=== PATIENT | male | born 1970 | race Caucasian/White ===

== ENCOUNTER 2020-08-19 10:55 | Inpatient (IN) ==
[2020-08-19] MEDS ORDERED: 0.9 % Sodium Chloride 1,000 ML IVC ONE (11:18)
[2020-08-19] MEDS ORDERED: Isovue-370 500 ML BOTTLE IVP ONE (11:18)
[2020-08-19 11:32] LABS: Basophils # 0.1 K/mcL (0.0-0.2); Basophils % 0.7 %; Eosinophils # 0.1 K/mcL (0.0-0.6); Hematocrit 46.6 % (37.5-50.1); Hemoglobin 16.7 g/dL (12.9-16.9); Immature Granulocytes % 0.3 % (0-4); Lymphocytes # 1.4 K/mcL (0.6-4.6); Lymphocytes % 21.1 %; Mean Corpuscular HGB Conc 35.8 g/dL (31.6-35.5); Mean Corpuscular Hemoglobin 33.2 pg (28.0-33.3); Mean Corpuscular Volume 92.6 fL (83.0-100.0); Mean Platelet Volume 9.7 fL (9.4-12.4); Monocytes # 0.6 K/mcL (0.0-1.3); Monocytes % 8.2 %; Neutrophils # 4.6 K/mcL (1.6-8.9); Platelet Count 201 K/mcL (140-400); Red Blood Count 5.03 M/mcL (4.19-5.50); Red Cell Distribution Width 12.1 % (11.5-14.5); Segmented Neutrophils % 68.7 %; White Blood Count 6.7 K/mcL (4.3-11.1)
[2020-08-19 11:59] LABS: Alanine Aminotransferase 26 Units/L (7-52); Albumin/Globulin Ratio 1.3 (1.1-2.2); Alkaline Phosphatase 93 Units/L (34-104); Aspartate Amino Transferase 21 Units/L (13-39); BUN/Creatinine Ratio 17 (6-26); Bilirubin,Direct 0.3 mg/dL (0.0-0.2); Bilirubin,Total 1.3 mg/dL (0.3-1.0); Blood Urea Nitrogen 11 mg/dL (6-20); Calcium 9.6 mg/dL (8.6-10.3); Carbon Dioxide 25 mEq/L (23-29); Chloride 98 mEq/L (98-107); Globulin 3.1 g/dL (2.4-3.5); Glucose 260 mg/dL (70-105); Lipase 12 Units/L (11-82); Osmolality,Calculated 280 (280-300); Sodium 131 mEq/L (136-145); Total Protein 7.1 g/dL (6.4-8.9); Troponin I 0.03 ng/mL (< 0.04); eGFR For African Americans > 60 (> 60); eGFR For Non-African Americans > 60 (> 60)
[2020-08-19] MEDS ORDERED: Furosemide 40 MG/4 ML VIAL IVP ONE (13:46)
[2020-08-19 14:02] LABS: Bilirubin,Urine Negative (Negative); Blood,Urine Negative (Negative); Clarity,Urine Clear (Clear); Color,Urine Colorless (Yellow); Glucose,Urine (UA) >=1000 mg/dL (Normal); Ketones,Urine Negative (Negative); Leukocyte Esterase,Urine Negative (Negative); Mucus,Urine Few per lpf (None-Few); Nitrite,Urine Negative (Negative); Protein,Urine Trace mg/dL (Neg-Trace); RBC,Urine 0-3 per hpf (0-3); Specific Gravity,Urine > 1.030 (1.010-1.025); Squamous Epithelial Cell,Urine Few per hpf (None-Few); Urobilinogen,Urine Normal (Normal); WBC,Urine 0-3 per hpf (0-3)
[2020-08-19] MEDS ORDERED: Naloxone 0.4 MG/ML INJ IVP PRN (15:11)
[2020-08-19] MEDS ORDERED: Acetaminophen 325 MG TABLET PO PRN (15:11)
[2020-08-19] MEDS ORDERED: Ondansetron 4 MG/2 ML VIAL IVP PRN (15:11)
[2020-08-19] MEDS ORDERED: Perflutren Lipid Microsphere 1.3 ML in 0.9 % Sodium Chloride 8.7 ML IVP PRN (15:23)
[2020-08-19 15:40] LABS: Adenovirus Not Detected (Not Detect); Bordetella Pertussis Not Detected (Not Detect); Chlamydophila pneumoniae Not Detected (Not Detect); Coronavirus 229E Not Detected (Not Detect); Coronavirus HKU1 Not Detected (Not Detect); Coronavirus NL63 Not Detected (Not Detect); Coronavirus OC43 Not Detected (Not Detect); Human Metapneumovirus Not Detected (Not Detect); Human Rhinovirus/Enterovirus Not Detected (Not Detect); Influenza A Subtype 2009 H1 Not Detected (Not Detect); Influenza B Not Detected (Not Detect); Mycoplasma pneumoniae Not Detected (Not Detect); Parainfluenza Virus 1 Not Detected (Not Detect); Parainfluenza Virus 2 Not Detected (Not Detect); Parainfluenza Virus 3 Not Detected (Not Detect); Parainfluenza Virus 4 Not Detected (Not Detect); Respiratory Syncytial Virus Not Detected (Not Detect); SARS-CoV-2 Not Detected (Not Detect)
[2020-08-19] MEDS ORDERED: Aspirin 325 MG TABLET PO ONE (15:46)
[2020-08-19] MEDS: Ipratropium/Albuterol Neb 3 ML IH SCH ×2 (16:00→21:58)
[2020-08-19] MEDS: Azithromycin 500 MG in 0.9 % Sodium Chloride 250 ML IVPB SCH (17:14)
[2020-08-19] MEDS: cefTRIAXone 1,000 MG in 0.9 % Sodium Chloride Mini Bag 100 ML IVPB SCH (17:14)
[2020-08-19] MEDS ORDERED: *HR* Dextrose 50 % in Water (Vial) 50 ML VIAL IVP PRN (17:27)
[2020-08-19] MEDS ORDERED: Dextrose Gel 15 GM/37.5 ML TUBE PO PRN ×2 (17:27)
[2020-08-19] MEDS ORDERED: D5% in Water 1,000 ML IVC PRN (17:27)
[2020-08-19 17:35] LABS: RBC,Pleural Fluid 15000 RBC/mcL
[2020-08-19 17:57] LABS: LDH,Pleural Fluid 58 Units/L (No Ref Range); Total Protein,Pleural Fluid < 2.0 g/dL
[2020-08-19 18:20] LABS: Estimated Average Glucose 229 mg/dl; Hemoglobin A1C 9.6 %
[2020-08-19 18:26] LABS: Basophils,Pleural Fluid 0 %
[2020-08-19 18:28] LABS: Appearance of Pleural Fl Bloody (Clear)
[2020-08-19] MEDS: *HR* Heparin 5,000 UNIT/ML VIAL SQ SCH (20:46)
[2020-08-19] MEDS ORDERED: Insulin DETEMIR 100 UNIT/ML X5UNITS SUBQ SCH (21:00)
[2020-08-20] MEDS: Ipratropium/Albuterol Neb 3 ML IH SCH ×4 (03:53→21:49)
[2020-08-20 05:48] LABS: Basophils % 0.8 %; Eosinophils # 0.1 K/mcL (0.0-0.6); Eosinophils % 2.2 %; Hematocrit 45.3 % (37.5-50.1); Hemoglobin 15.8 g/dL (12.9-16.9); Immature Granulocytes % 0.4 % (0-4); Lymphocytes # 1.7 K/mcL (0.6-4.6); Lymphocytes % 33.6 %; Mean Corpuscular HGB Conc 34.9 g/dL (31.6-35.5); Mean Corpuscular Hemoglobin 33.4 pg (28.0-33.3); Mean Corpuscular Volume 95.8 fL (83.0-100.0); Monocytes # 0.5 K/mcL (0.0-1.3); Monocytes % 10.9 %; Neutrophils # 2.6 K/mcL (1.6-8.9); Platelet Count 186 K/mcL (140-400); Red Blood Count 4.73 M/mcL (4.19-5.50); Red Cell Distribution Width 11.9 % (11.5-14.5); Segmented Neutrophils % 52.1 %
[2020-08-20] MEDS: *HR* Heparin 5,000 UNIT/ML VIAL SQ SCH ×3 (06:06→20:49)
[2020-08-20 06:07] LABS: BUN/Creatinine Ratio 19 (6-26); Blood Urea Nitrogen 15 mg/dL (6-20); Calcium 9.1 mg/dL (8.6-10.3); Carbon Dioxide 26 mEq/L (23-29); Chloride 102 mEq/L (98-107); Glucose 251 mg/dL (70-105); Osmolality,Calculated 289 (280-300); Potassium 3.7 mEq/L (3.5-5.1); Sodium 135 mEq/L (136-145); eGFR For African Americans > 60 (> 60); eGFR For Non-African Americans > 60 (> 60)
[2020-08-20] MEDS: Aspirin 81 MG TAB.CHEW PO SCH (08:30)
[2020-08-20] MEDS: Furosemide 40 MG/4 ML VIAL IVP SCH (08:31)
[2020-08-20] MEDS: cefTRIAXone 1,000 MG in 0.9 % Sodium Chloride Mini Bag 100 ML IVPB SCH (08:31)
[2020-08-20] MEDS: lisinopriL 5 MG TABLET PO SCH (11:50)
[2020-08-20] MEDS: Azithromycin 500 MG in 0.9 % Sodium Chloride 250 ML IVPB SCH (16:42)
[2020-08-20] MEDS: carvediloL 6.25 MG TABLET PO SCH (16:42)
[2020-08-20] MEDS: Insulin LISPRO 300 UNITS/3 ML VIAL SUBQ SCH (16:43)
[2020-08-20] MEDS: Insulin DETEMIR 100 UNIT/ML X5UNITS SUBQ SCH (20:49)
[2020-08-21] MEDS: Ipratropium/Albuterol Neb 3 ML IH SCH ×4 (03:33→22:53)
[2020-08-21] MEDS: *HR* Heparin 5,000 UNIT/ML VIAL SQ SCH ×3 (04:34→20:34)
[2020-08-21 06:32] LABS: Basophils % 0.6 %; Eosinophils # 0.2 K/mcL (0.0-0.6); Eosinophils % 3.4 %; Hematocrit 42.7 % (37.5-50.1); Hemoglobin 15.2 g/dL (12.9-16.9); Immature Granulocytes % 0.4 % (0-4); Lymphocytes # 1.5 K/mcL (0.6-4.6); Lymphocytes % 32.5 %; Mean Corpuscular HGB Conc 35.6 g/dL (31.6-35.5); Mean Corpuscular Hemoglobin 34.1 pg (28.0-33.3); Mean Corpuscular Volume 95.7 fL (83.0-100.0); Mean Platelet Volume 10.1 fL (9.4-12.4); Monocytes # 0.5 K/mcL (0.0-1.3); Monocytes % 10.8 %; Neutrophils # 2.4 K/mcL (1.6-8.9); Platelet Count 173 K/mcL (140-400); Red Blood Count 4.46 M/mcL (4.19-5.50); Red Cell Distribution Width 11.9 % (11.5-14.5); Segmented Neutrophils % 52.3 %; White Blood Count 4.6 K/mcL (4.3-11.1)
[2020-08-21 06:50] LABS: BUN/Creatinine Ratio 22 (6-26); Blood Urea Nitrogen 13 mg/dL (6-20); Calcium 8.9 mg/dL (8.6-10.3); Carbon Dioxide 24 mEq/L (23-29); Chloride 101 mEq/L (98-107); Glucose 181 mg/dL (70-105); Osmolality,Calculated 283 (280-300); Potassium 3.5 mEq/L (3.5-5.1); Sodium 134 mEq/L (136-145); eGFR For African Americans > 60 (> 60); eGFR For Non-African Americans > 60 (> 60)
[2020-08-21] MEDS: Insulin LISPRO 300 UNITS/3 ML VIAL SUBQ SCH ×4 (07:53→17:03)
[2020-08-21] MEDS ORDERED: Lidocaine -MPF 2% 2 ML VIAL ONE (10:39)
[2020-08-21] MEDS: carvediloL 6.25 MG TABLET PO SCH ×2 (10:41→17:03)
[2020-08-21] MEDS: lisinopriL 5 MG TABLET PO SCH (11:08)
[2020-08-21] MEDS: Aspirin 81 MG TAB.CHEW PO SCH (11:08)
[2020-08-21] MEDS: Furosemide 40 MG/4 ML VIAL IVP SCH (11:09)
[2020-08-21] MEDS: cefTRIAXone 1,000 MG in 0.9 % Sodium Chloride Mini Bag 100 ML IVPB SCH (11:09)
[2020-08-21] MEDS: Azithromycin 500 MG in 0.9 % Sodium Chloride 250 ML IVPB SCH (14:14)
[2020-08-21] MEDS ORDERED: SODIUM CHLORIDE/NAHCO3/KCL/PEG 4,000 ML SOLN.RECON PO ONE (15:00)
[2020-08-21] MEDS: Insulin DETEMIR 100 UNIT/ML X5UNITS SUBQ SCH (20:27)
[2020-08-22 05:41] LABS: Basophils % 0.9 %; Eosinophils # 0.2 K/mcL (0.0-0.6); Eosinophils % 3.9 %; Hematocrit 43.1 % (37.5-50.1); Immature Granulocytes % 0.5 % (0-4); Lymphocytes # 1.6 K/mcL (0.6-4.6); Lymphocytes % 35.9 %; Mean Corpuscular HGB Conc 34.8 g/dL (31.6-35.5); Mean Corpuscular Hemoglobin 33.2 pg (28.0-33.3); Mean Corpuscular Volume 95.4 fL (83.0-100.0); Mean Platelet Volume 10.4 fL (9.4-12.4); Monocytes # 0.4 K/mcL (0.0-1.3); Neutrophils # 2.1 K/mcL (1.6-8.9); Platelet Count 155 K/mcL (140-400); Red Blood Count 4.52 M/mcL (4.19-5.50); Red Cell Distribution Width 11.8 % (11.5-14.5); Segmented Neutrophils % 48.8 %; White Blood Count 4.3 K/mcL (4.3-11.1)
[2020-08-22] MEDS: *HR* Heparin 5,000 UNIT/ML VIAL SQ SCH ×2 (05:44→16:16)
[2020-08-22 06:14] LABS: BUN/Creatinine Ratio 18 (6-26); Blood Urea Nitrogen 10 mg/dL (6-20); Calcium 8.8 mg/dL (8.6-10.3); Carbon Dioxide 21 mEq/L (23-29); Chloride 101 mEq/L (98-107); Glucose 156 mg/dL (70-105); Osmolality,Calculated 278 (280-300); Potassium 3.7 mEq/L (3.5-5.1); Sodium 133 mEq/L (136-145); eGFR For African Americans > 60 (> 60); eGFR For Non-African Americans > 60 (> 60)
[2020-08-22] MEDS: Ipratropium/Albuterol Neb 3 ML IH SCH ×2 (06:30→10:53)
[2020-08-22] MEDS ORDERED: Ipratropium/Albuterol Neb 3 ML IH PRN (10:22)
[2020-08-22] MEDS: Insulin LISPRO 300 UNITS/3 ML VIAL SUBQ SCH ×3 (10:29→16:14)
[2020-08-22] MEDS ORDERED: *HR* Midazolam HCl 2 MG/2 ML VIAL ONE (11:40)
[2020-08-22] MEDS ORDERED: Lidocaine -MPF 2% 2 ML VIAL ONE (12:04)
[2020-08-22] MEDS: Aspirin 81 MG TAB.CHEW PO SCH (12:44)
[2020-08-22] MEDS: lisinopriL 5 MG TABLET PO SCH (12:45)
[2020-08-22] MEDS: Furosemide 40 MG/4 ML VIAL IVP SCH (12:48)
[2020-08-22] MEDS: cefTRIAXone 1,000 MG in 0.9 % Sodium Chloride Mini Bag 100 ML IVPB SCH (12:49)
[2020-08-22] MEDS: carvediloL 6.25 MG TABLET PO SCH ×2 (12:54→16:16)
[2020-08-22 15:35] VITALS: BP 120/77
== END 2020-08-22 18:01 | disposition home or self-care (01) | DRG 291 ==
LOC: EMEROOARM 10:55 → 2ANU 10:55 → SUATTDRO 15:42 → 2ANU 16:05
PROVIDERS: ADMIT Internal Medicine; ATTEND Internal Medicine
PROC: ENDOEBX (2020-08-21 14:00)

== ENCOUNTER 2020-12-24 08:57 | Inpatient (IN) ==
[2020-12-24 10:04] LABS: Basophils % 0.8 %; Eosinophils # 0.3 K/mcL (0.0-0.6); Eosinophils % 5.7 %; Hematocrit 36.8 % (37.5-50.1); Hemoglobin 13.3 g/dL (12.9-16.9); Immature Granulocytes % 0.8 % (0-4); Lymphocytes # 1.8 K/mcL (0.6-4.6); Lymphocytes % 33.4 %; Mean Corpuscular HGB Conc 36.1 g/dL (31.6-35.5); Mean Corpuscular Hemoglobin 33.8 pg (28.0-33.3); Mean Corpuscular Volume 93.4 fL (83.0-100.0); Monocytes # 0.5 K/mcL (0.0-1.3); Monocytes % 10.3 %; Neutrophils # 2.6 K/mcL (1.6-8.9); Platelet Count 172 K/mcL (140-400); Red Blood Count 3.94 M/mcL (4.19-5.50); Red Cell Distribution Width 12.1 % (11.5-14.5); White Blood Count 5.2 K/mcL (4.3-11.1)
[2020-12-24 10:12] LABS: Heparin anti-factor XA UFH 0.04 IU/mL (0.30-0.70); Prothrombin Time 11.7 Seconds (9.4-12.1)
[2020-12-24 10:15] LABS: Activated Partial Thrombo Time 27.9 Seconds (26.0-36.0); BUN/Creatinine Ratio 20 (6-26); Blood Urea Nitrogen 12 mg/dL (6-20); Calcium 9.1 mg/dL (8.6-10.3); Carbon Dioxide 25 mEq/L (23-29); Chloride 101 mEq/L (98-107); Glucose 256 mg/dL (70-105); Osmolality,Calculated 287 (280-300); Potassium 4.3 mEq/L (3.5-5.1); Sodium 134 mEq/L (136-145); eGFR For African Americans > 60 (> 60); eGFR For Non-African Americans > 60 (> 60)
[2020-12-24 10:16] LABS: Troponin I < 0.03 ng/mL (< 0.04)
[2020-12-24] MEDS ORDERED: *HR* Heparin 5,000 UNIT/ML VIAL IVP PRN ×2 (10:19)
[2020-12-24] MEDS ORDERED: *HR* Heparin 5,000 UNIT/ML VIAL IVP ONE (10:19)
[2020-12-24] MEDS ORDERED: Naloxone 0.4 MG/ML INJ IVP PRN (10:37)
[2020-12-24] MEDS ORDERED: Ondansetron 4 MG/2 ML VIAL IVP PRN (10:37)
[2020-12-24] MEDS ORDERED: *HR* HYDROcodone/Acet 5/325 mg TABLET PO PRN (10:37)
[2020-12-24] MEDS ORDERED: D5% in Water 1,000 ML IVC PRN (10:39)
[2020-12-24] MEDS ORDERED: *HR* Dextrose 50 % in Water (Vial) 50 ML VIAL IVP PRN (10:39)
[2020-12-24] MEDS ORDERED: Dextrose Gel 15 GM/37.5 ML TUBE PO PRN ×2 (10:39)
[2020-12-24] MEDS: Heparin 25,000UNIT/250ML 1/2NS 25,000 UNIT/250 ML IV.SOLN IVC SCH (11:25)
[2020-12-24] MEDS: Insulin LISPRO 300 UNITS/3 ML VIAL SUBQ SCH ×2 (13:53→17:21)
[2020-12-24] MEDS: carvediloL 6.25 MG TABLET PO SCH (17:21)
[2020-12-24] MEDS: Warfarin perPT PO SCH (17:23)
[2020-12-24] MEDS ORDERED: *HR* Warfarin 5 MG TABLET PO ONE (18:00)
[2020-12-25 01:58] LABS: INR 1.1; Prothrombin Time 12.2 Seconds (9.4-12.1)
[2020-12-25 02:54] LABS: Heparin anti-factor XA UFH 0.47 IU/mL (0.30-0.70)
[2020-12-25 02:59] LABS: Activated Partial Thrombo Time 83.6 Seconds (26.0-36.0)
[2020-12-25] MEDS: Spironolactone 25 MG TABLET PO SCH (08:22)
[2020-12-25] MEDS: Furosemide 20 MG TABLET PO SCH (08:22)
[2020-12-25] MEDS: lisinopriL 5 MG TABLET PO SCH (08:22)
[2020-12-25] MEDS: carvediloL 6.25 MG TABLET PO SCH ×2 (08:22→17:31)
[2020-12-25] MEDS: Aspirin Enteric Coated 81 MG Tablet PO SCH (08:22)
[2020-12-25] MEDS: Heparin 25,000UNIT/250ML 1/2NS 25,000 UNIT/250 ML IV.SOLN IVC SCH (08:26)
[2020-12-25] MEDS: Insulin LISPRO 300 UNITS/3 ML VIAL SUBQ SCH ×3 (09:47→17:31)
[2020-12-25] MEDS: Warfarin perPT PO SCH (17:38)
[2020-12-25] MEDS ORDERED: *HR* Warfarin 5 MG TABLET PO ONE (18:00)
[2020-12-26 05:10] LABS: Basophils % 0.8 %; Eosinophils # 0.3 K/mcL (0.0-0.6); Eosinophils % 5.7 %; Hemoglobin 14.2 g/dL (12.9-16.9); Immature Granulocytes % 0.8 % (0-4); Lymphocytes # 1.9 K/mcL (0.6-4.6); Lymphocytes % 36.7 %; Mean Corpuscular HGB Conc 36.4 g/dL (31.6-35.5); Mean Corpuscular Hemoglobin 34.1 pg (28.0-33.3); Mean Corpuscular Volume 93.8 fL (83.0-100.0); Mean Platelet Volume 9.6 fL (9.4-12.4); Monocytes # 0.5 K/mcL (0.0-1.3); Monocytes % 10.5 %; Neutrophils # 2.3 K/mcL (1.6-8.9); Platelet Count 159 K/mcL (140-400); Red Blood Count 4.16 M/mcL (4.19-5.50); Segmented Neutrophils % 45.5 %; White Blood Count 5.1 K/mcL (4.3-11.1)
[2020-12-26 05:12] LABS: INR 1.1
[2020-12-26 05:27] LABS: BUN/Creatinine Ratio 18 (6-26); Blood Urea Nitrogen 11 mg/dL (6-20); Calcium 9.1 mg/dL (8.6-10.3); Carbon Dioxide 26 mEq/L (23-29); Chloride 100 mEq/L (98-107); Glucose 210 mg/dL (70-105); Osmolality,Calculated 288 (280-300); Potassium 3.9 mEq/L (3.5-5.1); Sodium 136 mEq/L (136-145); eGFR For African Americans > 60 (> 60); eGFR For Non-African Americans > 60 (> 60)
[2020-12-26] MEDS: Heparin 25,000UNIT/250ML 1/2NS 25,000 UNIT/250 ML IV.SOLN IVC SCH (08:36)
[2020-12-26] MEDS: Insulin LISPRO 300 UNITS/3 ML VIAL SUBQ SCH ×3 (08:36→17:21)
[2020-12-26] MEDS: Spironolactone 25 MG TABLET PO SCH (08:37)
[2020-12-26] MEDS: Furosemide 20 MG TABLET PO SCH (08:37)
[2020-12-26] MEDS: Aspirin Enteric Coated 81 MG Tablet PO SCH (08:37)
[2020-12-26] MEDS: lisinopriL 5 MG TABLET PO SCH (08:37)
[2020-12-26] MEDS: carvediloL 6.25 MG TABLET PO SCH ×2 (08:37→17:21)
[2020-12-26] MEDS ORDERED: *HR* Warfarin 7.5 MG TABLET PO ONE (18:00)
[2020-12-26] MEDS: Warfarin perPT PO SCH (18:18)
[2020-12-27 02:17] LABS: Hematocrit 39.3 % (37.5-50.1); Hemoglobin 14.2 g/dL (12.9-16.9)
[2020-12-27 02:24] LABS: Heparin anti-factor XA UFH 0.51 IU/mL (0.30-0.70); INR 1.1; Prothrombin Time 12.9 Seconds (9.4-12.1)
[2020-12-27 02:28] LABS: BUN/Creatinine Ratio 19 (6-26); Blood Urea Nitrogen 14 mg/dL (6-20); Calcium 9.4 mg/dL (8.6-10.3); Carbon Dioxide 27 mEq/L (23-29); Chloride 97 mEq/L (98-107); Glucose 245 mg/dL (70-105); Osmolality,Calculated 287 (280-300); Potassium 4.1 mEq/L (3.5-5.1); Sodium 134 mEq/L (136-145); eGFR For African Americans > 60 (> 60); eGFR For Non-African Americans > 60 (> 60)
[2020-12-27] MEDS: Heparin 25,000UNIT/250ML 1/2NS 25,000 UNIT/250 ML IV.SOLN IVC SCH ×2 (05:40→15:51)
[2020-12-27] MEDS: lisinopriL 5 MG TABLET PO SCH (08:09)
[2020-12-27] MEDS: Aspirin Enteric Coated 81 MG Tablet PO SCH (08:10)
[2020-12-27] MEDS: Spironolactone 25 MG TABLET PO SCH (08:10)
[2020-12-27] MEDS: Furosemide 20 MG TABLET PO SCH (08:10)
[2020-12-27] MEDS: carvediloL 6.25 MG TABLET PO SCH ×2 (08:10→18:00)
[2020-12-27] MEDS: Insulin LISPRO 300 UNITS/3 ML VIAL SUBQ SCH ×3 (08:21→18:00)
[2020-12-27] MEDS ORDERED: *HR* Warfarin 7.5 MG TABLET PO ONE (18:00)
[2020-12-27] MEDS: Warfarin perPT PO SCH (18:11)
[2020-12-28] MEDS: Heparin 25,000UNIT/250ML 1/2NS 25,000 UNIT/250 ML IV.SOLN IVC SCH ×2 (02:08→22:33)
[2020-12-28 02:16] LABS: Hematocrit 37.3 % (37.5-50.1); Hemoglobin 13.8 g/dL (12.9-16.9); Mean Corpuscular Hemoglobin 34.5 pg (28.0-33.3); Mean Corpuscular Volume 93.3 fL (83.0-100.0); Mean Platelet Volume 9.9 fL (9.4-12.4); Platelet Count 167 K/mcL (140-400); Red Cell Distribution Width 11.9 % (11.5-14.5); White Blood Count 5.7 K/mcL (4.3-11.1)
[2020-12-28 02:22] LABS: INR 1.3; Prothrombin Time 14.5 Seconds (9.4-12.1)
[2020-12-28 02:23] LABS: Heparin anti-factor XA UFH 0.49 IU/mL (0.30-0.70)
[2020-12-28 02:38] LABS: BUN/Creatinine Ratio 28 (6-26); Blood Urea Nitrogen 16 mg/dL (6-20); Calcium 9.3 mg/dL (8.6-10.3); Carbon Dioxide 24 mEq/L (23-29); Chloride 100 mEq/L (98-107); Glucose 211 mg/dL (70-105); Osmolality,Calculated 283 (280-300); Potassium 3.9 mEq/L (3.5-5.1); Sodium 133 mEq/L (136-145); eGFR For African Americans > 60 (> 60); eGFR For Non-African Americans > 60 (> 60)
[2020-12-28] MEDS: Insulin LISPRO 300 UNITS/3 ML VIAL SUBQ SCH ×5 (08:30→20:38)
[2020-12-28] MEDS: Aspirin Enteric Coated 81 MG Tablet PO SCH (08:31)
[2020-12-28] MEDS: lisinopriL 5 MG TABLET PO SCH (08:31)
[2020-12-28] MEDS: Furosemide 20 MG TABLET PO SCH (08:32)
[2020-12-28] MEDS: Spironolactone 25 MG TABLET PO SCH (08:32)
[2020-12-28] MEDS: carvediloL 6.25 MG TABLET PO SCH ×2 (08:32→19:16)
[2020-12-28] MEDS ORDERED: *HR* Warfarin 5 MG TABLET PO ONE (18:00)
[2020-12-28] MEDS: Warfarin perPT PO SCH (19:16)
[2020-12-29 02:37] LABS: Heparin anti-factor XA UFH 0.46 IU/mL (0.30-0.70); INR 1.5; Prothrombin Time 17.2 Seconds (9.4-12.1)
[2020-12-29] MEDS: Spironolactone 25 MG TABLET PO SCH (07:37)
[2020-12-29] MEDS: carvediloL 6.25 MG TABLET PO SCH ×2 (07:37→17:30)
[2020-12-29] MEDS: Aspirin Enteric Coated 81 MG Tablet PO SCH (07:37)
[2020-12-29] MEDS: lisinopriL 5 MG TABLET PO SCH (07:37)
[2020-12-29] MEDS: Furosemide 20 MG TABLET PO SCH (07:37)
[2020-12-29] MEDS: Insulin LISPRO 300 UNITS/3 ML VIAL SUBQ SCH ×4 (07:38→21:05)
[2020-12-29 10:46] LABS: Estimated Average Glucose 194 mg/dl; Hemoglobin A1C 8.4 %
[2020-12-29] MEDS: Warfarin perPT PO SCH (17:36)
[2020-12-29] MEDS ORDERED: *HR* Warfarin 10 MG TABLET PO ONE (18:00)
[2020-12-29] MEDS: Heparin 25,000UNIT/250ML 1/2NS 25,000 UNIT/250 ML IV.SOLN IVC SCH (18:42)
[2020-12-29] MEDS: Insulin DETEMIR 100 UNIT/ML X5UNITS SUBQ SCH (21:04)
[2020-12-30 02:40] LABS: Heparin anti-factor XA UFH 0.47 IU/mL (0.30-0.70); INR 1.9; Prothrombin Time 21.8 Seconds (9.4-12.1)
[2020-12-30] MEDS: Spironolactone 25 MG TABLET PO SCH (07:34)
[2020-12-30] MEDS: carvediloL 6.25 MG TABLET PO SCH ×2 (07:34→18:08)
[2020-12-30] MEDS: Aspirin Enteric Coated 81 MG Tablet PO SCH (07:34)
[2020-12-30] MEDS: lisinopriL 5 MG TABLET PO SCH (07:35)
[2020-12-30] MEDS: Furosemide 20 MG TABLET PO SCH (07:35)
[2020-12-30] MEDS: Insulin LISPRO 300 UNITS/3 ML VIAL SUBQ SCH ×4 (07:36→21:57)
[2020-12-30 12:40] LABS: Hematocrit 40.2 % (37.5-50.1); Hemoglobin 14.6 g/dL (12.9-16.9); Mean Corpuscular HGB Conc 36.3 g/dL (31.6-35.5); Mean Corpuscular Hemoglobin 34.4 pg (28.0-33.3); Mean Corpuscular Volume 94.8 fL (83.0-100.0); Mean Platelet Volume 10.3 fL (9.4-12.4); Platelet Count 177 K/mcL (140-400); Red Blood Count 4.24 M/mcL (4.19-5.50); White Blood Count 4.6 K/mcL (4.3-11.1)
[2020-12-30] MEDS: Heparin 25,000UNIT/250ML 1/2NS 25,000 UNIT/250 ML IV.SOLN IVC SCH (15:33)
[2020-12-30] MEDS ORDERED: *HR* Warfarin 7.5 MG TABLET PO ONE (18:00)
[2020-12-30] MEDS: Warfarin perPT PO SCH (18:28)
[2020-12-30] MEDS: Insulin DETEMIR 100 UNIT/ML X5UNITS SUBQ SCH (21:57)
[2020-12-31 05:12] LABS: Heparin anti-factor XA UFH 0.46 IU/mL (0.30-0.70)
[2020-12-31 05:13] LABS: INR 2.3; Prothrombin Time 25.5 Seconds (9.4-12.1)
[2020-12-31 07:41] VITALS: BP 128/84
[2020-12-31] MEDS: Spironolactone 25 MG TABLET PO SCH (09:03)
[2020-12-31] MEDS: Aspirin Enteric Coated 81 MG Tablet PO SCH (09:03)
[2020-12-31] MEDS: Insulin LISPRO 300 UNITS/3 ML VIAL SUBQ SCH (09:03)
[2020-12-31] MEDS: carvediloL 6.25 MG TABLET PO SCH (09:03)
[2020-12-31] MEDS: Furosemide 20 MG TABLET PO SCH (09:03)
[2020-12-31] MEDS: lisinopriL 5 MG TABLET PO SCH (09:03)
[2020-12-31] MEDS ORDERED: *HR* Warfarin 7.5 MG TABLET PO ONE (18:00)
== END 2020-12-31 10:34 | disposition home or self-care (01) | DRG 303 ==
LOC: EMEROOARM 08:57 → 3BNU 08:57 → SUATTDRO 11:10 → 3BNU 11:54 → SUATTDRO 12-26 13:34
PROVIDERS: ADMIT Internal Medicine; ATTEND Nurse Practitioner